=== PATIENT | female | born 1945 | race Caucasian/White ===

== ENCOUNTER → 2018-06-09 | Outpatient (CLI) | payer OTHER, BC | LOC: FIMAGING 15:14 | DX: Z12.31 Encounter for screening mammogram for malignant neoplasm of breast (principal) ==

== ENCOUNTER 2019-01-04 05:00 | Observation (INO) | payer OTHER, BC ==
--- NOTE | 2019-01-04 05:48 | EDPHY ---
H & P Time Seen by Provider: 01/04/19 05:26 HPI/ROS: CHIEF COMPLAINT: Chest Discomort HISTORY OF PRESENT ILLNESS: This is a 73-year-old female who took a tumble about 8 days ago. She was attempting to reach for lights which were between the wall and the nightstand and the bed. However due to her underlying Parkinson's disease, she went down to the ground striking her head to the nightstand, though was able to get herself up despite being caught on the way down. Of note is that the a on the way down in the fall she did sustain an abrasion to the right scapular region. Due to her cognitive decline it is unclear when the discomfort in the chest started. Whereas she did fall some 8 days ago it sounds like the discomfort started that Saturday. That was only just 5 days ago. In point of fact her believes that there was really no chest wall injury from the fall that occurred 8 days ago. Yes there is an abrasion to the right posterior scapular area, however she did soon be bothered by the chest with respect to twisting bending and getting in out of bed. It was only 5 days ago she noticed a discomfort. The morning of , 4 days ago she went to boxing class. She could not complete that, as she had no energy. She went home and rested and then had noted the chest discomfort which prompted her to go to the urgent care. There she had the chest x-ray. Over the course of the next succeeding 3 days the discomfort would come and go until having started in the wee hours of the morning as noted above just 2 or 3 hr ago. In fact, on the she went to the local urgent care and they had a negative chest x-ray and sent her home. Over the last 4 days the discomfort would wax and wane. Her thinks they improvement was related to the periodicity of the ibuprofen at 600 mg total at 24 hrs. However, did not seem to be exclusively related to movement. However, further, she did not seem to be worse when coming to the front room for the back bedroom. At the same token what prompted the visit this morning was the discomfort is pretty bad and in point of fact she became diaphoretic. Her clarifies that as such whereas she was in her pajamas she changed into a shirt in order to come here, thus her shirt is dry as well as she is warm and dry. For that reason she decided to come here for evaluation. Furthermore, it was so bad she described as moderate to moderately severe and thought to herself, she could go through another day with his discomfort. P: Although waxing and waning this does not really seem to be positional in nature. Q: She describes as sharp R: Central upper chest across both sides but does not radiate into the arms jaw or abdomen or back S: Moderate to moderately severe T: A little difficult to discern however it seems to be mostly episodic over last 5 days. This is the worse this morning Cardiac Risk Factors: DM: No HTN: No High Chol: No Smoking: No Family History: No cardiac disease. Her father of an abdominal aneurysm. Mother age 85 from osteoporosis. Sister has also had Parkinson' s disease. No liver early-onset coronary disease. Obesity: No REVIEW OF SYSTEMS: Constitutional: No fever, no chills. Eyes: No discharge ENT: No sore throat. Cardiovascular: No chest pain, no palpitations. Respiratory: No cough, shortness of breath, or wheezing. Gastrointestinal: No Nausea, vomiting, abdominal pain or diarrhea Genitourinary: No hematuria or frequency. Musculoskeletal: No back pain. Skin: No rashes. Neurological: No headache. A 10 system review of systems was performed and is negative except for the noted findings in the HPI. Source: Patient Exam Limitations: No limitations - Medical/Surgical History Hx Asthma: No Hx Chronic Respiratory Disease: No Hx Diabetes: No Hx Cardiac Disease: No Hx Renal Disease: No Hx Cirrhosis: No Hx Alcoholism: No Hx HIV/AIDS: No Hx Splenectomy or Spleen Trauma: No - Family History Significant Family History: No pertinent family hx (No early-onset coronary artery disease) - Social History Alcohol Use: None Drug Use: None - Physical Exam Exam: General Appearance: Alert, no distress. Afebrile. Normal phonation. No respiratory distress. However, even using the hydraulic the bed tip her back, she complains of market discomfort over the central chest in the same place as she describes for tonight when I use the hydraulic. Eyes: Pupils equal and round no pallor or injection. No icterus ENT, Mouth: Mucous membranes moist Pharynx without erythema or exudate. TM Clear. Neck: No adenopathy. Supple. No JVD. Trachea in midline. Respiratory: There are no retractions, lungs are clear to auscultation. Chest wall: Tenderness to the upper chest wall though no crepitus or step-off but certainly does reproduce the discomfort. No crepitus. there is a well healed abraision over the ridge of the scapula, on the right. Cardiovascular: Regular rate and rhythm, without murmur. Abdomen: Soft and nontender, no masses, bowel sounds normal. Femoral pulses equal. I do not feel an aneurysm. She is thin however as of late heard back she has splinting due to her chest discomfort that is positional in nature to allow me to feel the abdomen Neurological: Ox3. No motor weakness. Sensation intact. Gait nl. Skin: Warm and dry, no rashes. Musculoskeletal: No joint swelling. Extremities: No edema. Homans sign negative. No cords. Psychiatric: Normal affect. Patient is oriented X 3. There is no agitation Constitutional: Initial Vital Signs Temperature (C) 36.6 C 01/04/19 05:10 Heart Rate 65 01/04/19 05:10 Respiratory Rate 20 01/04/19 05:10 Blood Pressure 127/69 H 01/04/19 05:10 O2 Sat (%) 97 01/04/19 05:10 O2 Delivery Mode Room Air Allergies/Adverse Reactions: No Known Allergies Allergy (Unverified 01/04/19 05:19) Home Medications: Medication Instructions Recorded Carbidopa-Levodopa 150 mg-Enta 01/04/19 Ropinirole HCl 01/04/19 Medical Decision Making - Diagnostics EKG Interpretation: EKG: Interpreted by me contemporaneously. Rhythm: Normal sinus rhythm. Heart rate 64 QTc 430 QRS: normal no Q-waves STT segment: There is ST segment changes in V2 and V3 that are mostly suggestive of early repolarization as well as some coving seen in 2, V4 V5 V6 T Waves: Normal Q waves none Summary: Equivocal EKG with J-point changes and early repolarization versus ischemia EKG 2. EKG: Interpreted by me contemporaneously. Rhythm: [Normal sinus rhythm.] Heart rate 64 QTc 453 QRS: [normal] STT segment: J-point changes seen !, II, V5 V6 V2 and V3 verses early repolarization versus ST segment changes T Waves: [Normal] Q waves [none] Summary: Equivocal EKG with J-point changes and early repolarization versus ischemia ED Course/Re-evaluation: Her knee she will EKG was equivocal though somewhat worrisome given her age. Thereby she was given a titration of fentanyl IV which she tolerated well. On the surface most of the sounds occur a musculoskeletal process. There was a recent fall and she is tender to the touch which does reproduce his symptomatology. However, the discomfort the chest in start for 4 days after the fall, has been accelerating the last 3 days and fat point of fact this morning was associated with diaphoresis. Thereby I recommend that she become admitted to the hospital to complete a rule out and a provocative test such as take a nuclear stress test. I have discussed the case with Dr. Martinez on- call for Hospital Medicine at the [facility] and they accepted for transfer. Am tele forms completed. Second EKG was performed and it was identical with early repolarization versus ischemic changes noted. Laboratory studies include the following: Preserved kidney function Creatinine is 0.7 Normal troponin CBC is essentially normal. CT scan of the head-official reading pending, prelim negative. CT scan of chest-official reading pending, prelim negative. Differential Diagnosis: Differential diagnosis includes but is not limited to the following: ACS, myocardial infarction, pneumothorax, pleurisy, pulmonary embolus, CHF, Pneumonia, bronchospasm, Asthma, anxiety, muscle strain. - Data Points Laboratory Results: 01/04/19 01/04/19 06:04 06:04 POC Sodium 141 mEq/L mEq/L (135-145) POC Potassium 3.8 mEq/L mEq/L (3.3-5.0) POC Chloride 103.0 mEq/L mEq/L (97-110) POC Total CO2 29 mEq/L mEq/L (22-31) POC BUN 19 mg/dL mg/dL (7-23) POC Creatinine 0.7 mg/dL mg/dL (0.6-1.0) POC Glucose 99 mg/dL mg/dL (70-100) POC Calcium 10.1 mg/dL mg/dL (8.5-10.4) POC Troponin I 0.01 ng/mL ng/mL (0.00-0.08) Medications Given: Discontinued Medications Fentanyl (Sublimaze) 25 mcg IVP EDNOW ONE Stop: 01/04/19 06:18 Last Admin: 01/04/19 06:25 Dose: 25 mcg Sodium Chloride (Ns) 1,000 mls @ 0 mls/hr IV ONCE ONE; As Directed PRN Reason: Protocol Stop: 01/04/19 06:25 Last Admin: 01/04/19 06:34 Dose: 1,000 mls Point of Care Test Results: CBC CBC Collection Date 01/04/19 CBC Collection Time 05:55 WBC 5.65 RBC 4.11 HGB 13.3 HCT 39.9 PLT 219 Neut # 3.19 Neut 56.4 LYMPH # 1.67 LYMPH 29.6 MCV 97.1 Chemistry 01/04/19 01/04/19 06:04 06:04 POC Sodium 141 mEq/L mEq/L (135-145) POC Potassium 3.8 mEq/L mEq/L (3.3-5.0) POC Chloride 103.0 mEq/L mEq/L (97-110) POC Total CO2 29 mEq/L mEq/L (22-31) POC BUN 19 mg/dL mg/dL (7-23) POC Creatinine 0.7 mg/dL mg/dL (0.6-1.0) POC Glucose 99 mg/dL mg/dL (70-100) POC Calcium 10.1 mg/dL mg/dL (8.5-10.4) POC Troponin I 0.01 ng/mL ng/mL (0.00-0.08) Departure - Departure Disposition: [facility] Inpatient Acute Clinical Impression: Chest pain Qualifiers: Chest pain type: unspecified Qualified Code(s): R07.9 - Chest pain, unspecified Fall Qualifiers: Encounter type: initial encounter Qualified Code(s): W19.XXXA - Unspecified fall, initial encounter Abrasion of back wall of thorax Qualifiers: Encounter type: initial encounter Laterality: right Qualified Code(s): S20.411A - Abrasion of right back wall of thorax, initial encounter Condition: Good
--- NOTE | 2019-01-04 05:51 | CPEKG ---
Test Reason : OPEN Blood Pressure : / mmHG Vent. Rate : 064 BPM Atrial Rate : 064 BPM P-R Int : 169 ms QRS Dur : 086 ms QT Int : 416 ms P-R-T Axes : 057 033 042 degrees QTc Int : 430 ms Sinus rhythm Minimal ST elevation, anterior leads =I, II, V2, V3. Likely J point changes, no old EKG for compari son. Confirmed by Julio Sanchez ([id number]) on 01/04/2019 5:51:07 AM Referred By: PHYSICIAN ED Confirmed By:Julio Sanchez
[2019-01-04] MEDS ORDERED: fentaNYL 100 MCG/2 ML INJ IVP ONE (06:17)
[2019-01-04] MEDS ORDERED: NS 1,000 ML IV ONE (06:24)
[2019-01-04] MEDS ORDERED: IOPAMIDOL (ISOVUE-300) 100 ML BTL ONE (06:34)
[2019-01-04] MEDS ORDERED: HYDROmorphONE/DILAUDID 2 MG/ML INJ IVP ONE (07:14)
[2019-01-04] MEDS ORDERED: ASPIRIN 81 MG CHEWABLE TAB PO ONE (07:46)
[2019-01-04] MEDS ORDERED: ASPIRIN 81 MG CHEWABLE TAB ONE (07:49)
--- NOTE | 2019-01-04 09:25 | PDGENHP ---
History and Physical - Chief Complaint CP - History of Present Illness Pt is a 73yo F w/ PMH PD who presented to the ED early this AM for worsening, severe CP. She started experiencing intermittent sharp CP 1 week ago after she fell out of bed. She had been reaching for the lamp to turn off the light and fell between the night stand and bed. She hit her head, shoulder, and chest. She feels like she has some bruises and scrapes. Normally she is very active and does exercise classes for PD almost daily. The pain progressively worsened and became constant. She is unable to describe severity of pain or tell all the Hx, so her is supplementing information. She experienced associated weakness that began on and did not make it through her weekly boxing class. However she was able to do her cycling classes on Saturday and Saturday. night, she went to an Urgent Care and was told she should take ibuprofen, but that she should come to the ED if the pain worsens. She had diaphoresis yesterday and worsened pain. She decided to come to the ED this morning to get evaluated because she felt unable to go about her normal activities. Pain is better with sitting up on the couch. Pain is worse with head/movement, but worse when she is lying in bed and trying to move her head. History Information - Allergies/Home Medication List Allergies/Adverse Reactions: No Known Allergies Allergy (Unverified 01/04/19 05:19) Home Medications: Carbidopa/Levodopa/Entacapone [Carbidopa-Levodopa 150 mg-Enta] 1 tab PO QID 01/18 [Last Taken Unknown] Estradiol [Estradiol] 1 g VG MOTH 01/04/19 [Last Taken Unknown] rOPINIRole HCL [Ropinirole ER] 6 mg PO DAILY 01/04/19 [Last Taken Unknown] I have personally reviewed and updated: family history, medical history, social history, surgical history - Past Medical History Additional medical history: Parkinson's disease - Surgical History Reports: no pertinent surgical hx - Family History Positive for: CAD - Social History Smoking Status: Never smoked Alcohol Use: None Drug Use: None Review of Systems Review of Systems: ROS: 10pt was reviewed & negative except for what was stated in HPI & below Physical Exam Physical Exam: Temp Pulse Resp BP Pulse Ox 36.6 C 78 18 118/62 97 01/04/19 08:32 01/04/19 08:32 01/04/19 08:32 01/04/19 08:32 01/04/19 08:32 Constitutional: no apparent distress, appears nourished Eyes: PERRL, EOMI Ears, Nose, Mouth, Throat: moist mucous membranes, hearing normal Cardiovascular: regular rate and rhythym, no murmur, rub, or gallop Respiratory: no respiratory distress, no rales or rhonchi, clear to auscultation Gastrointestinal: normoactive bowel sounds, soft, non-tender abdomen Genitourinary: no bladder fullness, No maher in urethra Skin: warm, normal color, abrasion (R thoracic back near shoulder) Musculoskeletal: joint tenderness, muscular tenderness (L chest wall, L thoracic region), No no muscle tenderness Neurologic: AAOx3, CN II-XII Intact Psychiatric: interacting appropriately, not anxious, flat affect Lymph, Heme, Immunologic: No ecchymoses, No petechiae Lab Data & Imaging Review 01/04/19 11:47 POC Sodium 141 mEq/L (135-145) 01/04/19 06:04 POC Potassium 3.8 mEq/L (3.3-5.0) 01/04/19 06:04 POC Chloride 103.0 mEq/L (97-110) 01/04/19 06:04 POC Total CO2 29 mEq/L (22-31) 01/04/19 06:04 POC BUN 19 mg/dL (7-23) 01/04/19 06:04 POC Creatinine 0.7 mg/dL (0.6-1.0) 01/04/19 06:04 POC Glucose 99 mg/dL (70-100) 01/04/19 06:04 POC Calcium 10.1 mg/dL (8.5-10.4) 01/04/19 06:04 POC Troponin I 0.01 ng/mL (0.00-0.08) 01/04/19 06:04 Imaging Review: CT head- no acute pathology. Visualized and Interpreted EKG results: Yes EKG Interpretation: Positive for: normal sinsus rhythm. Negative for: ST elevation, ST depression Assessment & Plan Assessment: 73yo F being observed o/n for intractable chest/back MSK pain 2/2 fall/ contusion. Abrasion of back wall of thorax (Acute) Chest pain (Acute) - musculoskeletal Thoracic back pain - musculoskeletal Fall (Acute) w/ thorax contusion Parkinson's disease -r/o cardiac etiology w/ serial trops and cardiac monitoring. -no need for stress test at this time. -analgesics - lidocaine patch, prn Toradol, prn narcotics. -prn antispasmodic - cyclobenzaprine -PT/OT eval. Will likely need outpt PT/OT. -check CBC, CK, mag. -Observe o/n. -VTE ppx - ambulatory, only staying overnight. JEANNE thayer.
[2019-01-04] MEDS ORDERED: OXYCODONE/APAP 5/325 TAB PO PRN (09:53)
[2019-01-04] MEDS ORDERED: PROMETHAZINE HCL 25 MG/ML INJ IVP PRN (09:53)
[2019-01-04] MEDS ORDERED: ACETAMINOPHEN 325 MG TAB PO PRN (09:53)
[2019-01-04] MEDS: LIDOCAINE 4%/MENTHOL 1% PATCH TD SCH (10:23)
[2019-01-04] MEDS: KETOROLAC 15 MG/1 ML SDV IVP PRN ×2 (10:48→16:54)
[2019-01-04 12:13] LABS: PLATELET COUNT 198 10^3/uL (150-400)
[2019-01-04 12:14] LABS: CREATINE KINASE 69 IU/L (0-156)
[2019-01-04] MEDS ORDERED: Ropinirole Hcl [Ropinirole Er] 4 MG PO SCH (12:30)
[2019-01-04] MEDS ORDERED: CARBIDOPA/LEVODOPA 25 MG/100 MG TAB PO ONE (12:45)
[2019-01-04] MEDS: ENTACAPONE 200 MG TAB PO SCH ×2 (13:12→16:57)
[2019-01-04] MEDS: HYDROCODONE/APAP 5/325 TAB PO PRN (13:12)
[2019-01-04] MEDS ORDERED: CYCLOBENZAPRINE 10 MG TAB PO PRN (14:52)
[2019-01-04] MEDS ORDERED: LEVODOPA PO SCH (16:00)
[2019-01-04] MEDS ORDERED: CARBIDOPA PO SCH (16:00)
[2019-01-04] MEDS ORDERED: CARBIDOPA/LEVODOPA 25 MG/100 MG TAB PO SCH (16:00)
[2019-01-04] MEDS ORDERED: ENTACAPONE PO SCH (16:00)
[2019-01-04] MEDS ORDERED: [UNRECOGNIZED DRUG - OTHER] PO SCH (16:00)
[2019-01-04] MEDS ORDERED: PATCH REMOVAL 1 EA PATCH TD SCH (21:00)
[2019-01-04] MEDS: LEVODOPA PO SCH (21:04)
[2019-01-04] MEDS: ENTACAPONE PO SCH (21:04)
[2019-01-04] MEDS: CARBIDOPA PO SCH (21:04)
--- NOTE | 2019-01-04 22:55 | CPEKG ---
Test Reason : OPEN Blood Pressure : / mmHG Vent. Rate : 064 BPM Atrial Rate : 064 BPM P-R Int : 167 ms QRS Dur : 103 ms QT Int : 439 ms P-R-T Axes : 065 033 048 degrees QTc Int : 453 ms Sinus rhythm Low voltage, precordial leads Minimal ST elevation, anterior leads c/w early repolarization Confirmed by Julio Sanchez ([id number]) on 01/04/2019 10:54:39 PM Referred By: Julio Sanchez Confirmed By:Julio Sanchez
[2019-01-05] MEDS: CARBIDOPA PO SCH ×2 (05:32→10:44)
[2019-01-05] MEDS: ENTACAPONE PO SCH ×2 (05:32→10:44)
[2019-01-05] MEDS: LEVODOPA PO SCH ×2 (05:32→10:44)
[2019-01-05 08:19] VITALS: BP 105/52
[2019-01-05] MEDS: LIDOCAINE 4%/MENTHOL 1% PATCH TD SCH (08:55)
[2019-01-05] MEDS: HYDROCODONE/APAP 5/325 TAB PO PRN (08:56)
[2019-01-05] MEDS ORDERED: ROPINIROLE HCL 6 MG PO SCH (09:00)
--- NOTE | 2019-01-05 10:42 | CPEKG ---
Test Reason : OPEN Blood Pressure : / mmHG Vent. Rate : 071 BPM Atrial Rate : 071 BPM P-R Int : 168 ms QRS Dur : 092 ms QT Int : 404 ms P-R-T Axes : 080 041 041 degrees QTc Int : 439 ms Sinus rhythm Probable left atrial enlargement Confirmed by Jeffrey Good ([id number]) on 01/05/2019 10:42:08 AM Referred By: Tien Martinez Confirmed By:Jeffrey Good
[2019-01-05] MEDS ORDERED: ESTRADIOL 42.5 GM CRTUBE VG SCH (12:22)
[2019-01-05] MEDS: KETOROLAC 15 MG/1 ML SDV IVP PRN (12:50)
--- NOTE | 2019-01-05 21:04 | GDS ---
[f rep st] DISCHARGE SUMMARY DISCHARGE DIAGNOSES: 1. Musculoskeletal chest wall pain secondary to a fall. 2. Parkinson disease. HISTORY: For details, please see history and physical dated January 04, 2019. In brief, the patient is a 73-year-old female with history of Parkinson disease who presented to the emergency department compl aining of worsening chest pain. This initially started 1 week ago after she fell out of bed, hitting her chest on the nightstand and bed. She continued her aggressive physical activity regimen but had increased discomfort with these activities. In addition, she noted her pain was worse when she push ed on it or hugged somebody that caused pressure on her chest wall. She was admitted to the hospital for further evaluation. HOSPITAL COURSE: The patient admitted to the cardiac telemetry unit. She had negative troponin x2. Her EKG was nonischemic. She had some repolarization abnormalities in her anterior leads. She unde rwent a chest CT which showed no mediastinal hematoma, hemothorax, pleural effusion or pneumothorax. In addition, there was no evidence of aortic dissection or aneurysm. Linear sclerosis of the right 8th, 9th and 10th ribs was noted, suggestive of old trauma, though metastatic disease was not entirel y excluded. A head CT was negative for an acute intracranial abnormality. Her HEART score was 2. S he had no other cardiac risk factors, other than her age. We discussed the option for further outpat ient risk stratification, which she agrees to; however, I think it is most likely her chest pain is m usculoskeletal related to her recent fall with direct trauma of the chest wall. MEDICATIONS: Our pain management plan at discharge will include: Tylenol 1000 mg q.8 hours; Celebre x 100 mg p.o. b.i.d., #30, no refills; Lidoderm patch and tramadol 25 to 50 mg p.o. q.8 hours p.r.n., #20, no refills. She will continue all other outpatient medications as previously prescribed. FOLLOWUP: Dr. Lilo Valladares, primary care. /[id number]/MODL
== END 2019-01-05 13:45 | disposition home or self-care (01) ==
LOC: CED 05:00 → CEDHOLD 07:09 → F2W 08:45
PROVIDERS: ADMIT Internal Medicine; ATTEND Hospitalist
DX: R07.89 Other chest pain (principal); S20.411A Abrasion of right back wall of thorax, initial encounter; W01.190A Fall on same level from slipping, tripping and stumbling with subsequent striking against furniture, initial encounter; Y92.003 Bedroom of unspecified non-institutional (private) residence as the place of occurrence of the external cause; G20 Parkinson's disease; E86.1 Hypovolemia
CPT/HCPCS: 70450; 71260; 92523; 93005; 96361; 96374; 96375; 97116; 97161; 97166; 97530; 97535; 99285; G0378; J1170; J1885; J3010; Q9967; 80048-ER; 84484-ER; 85025-QW-ER